=== PATIENT | male | born 1990 | race Caucasian/White ===

== ENCOUNTER 2017-11-01 10:15 | Emergency (ER) | payer OTHER ==
[~2017-11-01] VITALS: Ht 177.8 cm; Wt 81.6 kg
[2017-11-01 10:19] VITALS: Ht 177.8 cm; Wt 81.6 kg
[2017-11-01 10:44] LABS: BASOPHIL % 0.3 % (0-2); PLATELET COUNT 210 x10^3mcL (130-400); RED CELL DISTRIBUTION WIDTH 13.5 % (11.5-14.5)
[2017-11-01 10:52] LABS: CALCIUM 8.8 mg/dL (8.5-10.1); CARBON DIOXIDE 29.1 mmol/L (21-32); CHLORIDE SERUM 104 mmol/L (98-107); CREATININE SERUM 0.8 mg/dL (0.7-1.3); GFR1 > 60 mL/min; GLUCOSE SERUM 105 mg/dL (74-106); POTASSIUM SERUM 3.7 mmol/L (3.5-5.1); SODIUM SERUM 134 mmol/L (136-145)
[2017-11-01 10:57] LABS: ALBUMIN 3.9 g/dL (3.4-5.0); ALKALINE PHOSPHATASE 102 U/L (46-116); ALT/SGPT 86 U/L (16-63); AST/SGOT 59 U/L (15-37); BILIRUBIN TOTAL 0.72 mg/dL (0.20-1.00); HDL CHOLESTEROL 50 mg/dL (40-60); LIPASE 120 IU/L (73-393); TRIGLYCERIDES 47 mg/dL (<150)
[2017-11-01 11:00] LABS: CHOLESTEROL 126 mg/dL (<200); CHOLESTEROL/HDL RATIO 2.5
[2017-11-01 11:08] LABS: FREE T4 1.12 ng/dL (0.76-1.46); FREE THYROXINE INDEX 3.1 ug/dL (1.4-4.5); T4(THYROXINE) 8.5 ug/dL (4.7-13.3)
[2017-11-01 11:53] VITALS: BP 128/67
[2017-11-01 12:14] LABS: T3 TOTAL 1.06 ng/mL
== END 2017-11-01 11:53 | disposition home or self-care (01) ==
LOC: ED 10:15
PROVIDERS: Specialist
DX: R07.89 Other chest pain (principal); F17.210 Nicotine dependence, cigarettes, uncomplicated
CPT/HCPCS: 83880; 84439; 99406; G0480; J1885; J7030; Q0092